=== PATIENT | male | born 1990 | race Caucasian/White ===

== ENCOUNTER 2022-11-11 22:49 | Emergency (ER) | payer BC ==
[~2022-11-11] VITALS: Ht 172.7 cm; Wt 99.8 kg
[2022-11-12] MEDS ORDERED: IV NS 0.9% 1,000 ML BAG IV ONE
[2022-11-12] MEDS ORDERED: KETOROLAC TROMETHAMINE INJ 30 MG/ML VIAL IV ONE
--- NOTE | 2022-11-12 | NUR ---
TO ER BED 12. BIBS C/O RECTUM PAIN AND RIGHT SIDED ABDOMINAL PAIN WITH DIARRHEA [id number]. PT IS ALERT AND ORIENTED. RR EVEN AND NONLABORED. CONNECTED TO MONITOR. VSS
--- NOTE | 2022-11-12 | NUR ---
SECURED IV ACCESS ON L HAND#20, PATENT AND FLUSHING WELL.
[2022-11-12] MEDS ORDERED: KETOROLAC TROMETHAMINE INJ 30 MG/ML VIAL ONE (00:04)
--- NOTE | 2022-11-12 00:13 | NUR ---
ultrasound at bedside
[2022-11-12 00:19] LABS: BASOPHILS # (AUTO) 0.1 K/uL (0.0-0.2); BASOPHILS % (AUTO) 0.9 % (0.0-2.0); EOSINOPHILS % (AUTO) 3.2 % (0.0-6.0); HEMATOCRIT 40 % (39-51); LYMPHOCYTES # (AUTO) 3.2 K/uL (0.8-4.8); LYMPHOCYTES % (AUTO) 44.7 % (20.0-44.0); MEAN CORPUSCULAR HGB CONC 33 g/dl (31.0-36.0); MEAN CORPUSCULAR VOLUME 85 fL (80-96); MONOCYTES # (AUTO) 0.5 K/uL (0.1-1.30); MONOCYTES % (AUTO) 6.9 % (2.0-12.0); NEUTROPHILS # (AUTO) 3.2 K/uL (1.8-8.9); NEUTROPHILS % (AUTO) 44.3 % (43.0-81.0); PLATELET COUNT (AUTO) 188 K/uL (150-450); RED BLOOD CELL COUNT(AUTO) 4.68 MIL/uL (4.5-6.0); WHITE BLOOD COUNT (AUTO) 7.2 K/uL (4.3-11.0)
[2022-11-12 00:25] LABS: BILIRUBIN,URINE NEGATIVE (NEGATIVE); COLOR,URINE YELLOW (YELLOW); LEUKOCYTE ESTERASE ,URINE NEGATIVE (NEGATIVE); NITRITE, URINE NEGATIVE (NEGATIVE); PROTEIN,URINE NEGATIVE (NEGATIVE); UGLUCOSE NEGATIVE (NEGATIVE)
[2022-11-12 00:32] LABS: BACTERIA,URINE None seen /HPF (None Seen); RBC,URINE 0-2 /HPF (0-2); SQUAMOUS EPITHELIAL CELL,UR Few /HPF (None Seen); WBC,URINE 0-2 /HPF (0-3)
[2022-11-12 00:36] LABS: ALBUMIN 3.7 g/dL (3.4-5.0); BILIRUBIN,TOTAL 0.2 mg/dL (0.2-1.0); CALCIUM, SERUM 9.1 mg/dL (8.5-10.1); CREATININE 1.1 mg/dL (0.6-1.3); POTASSIUM 3.6 mmol/L (3.5-5.1); TOTAL PROTEIN, SERUM 6.8 g/dL (6.4-8.2)
--- NOTE | 2022-11-12 00:53 | NUR ---
COVID SWAB COLLECTED
--- NOTE | 2022-11-12 03:38 | NUR ---
PATIENT IS RESTING COMFORTABLY IN BED, DENIES ANY DISCOMFORT AT THIS TIME. VSS
[2022-11-12 04:17] VITALS: BP 132/61
--- NOTE | 2022-11-12 04:17 | NUR ---
Patient discharged to home in stable condition. Written and verbal after care instructions given. Patient verbalizes understanding of instruction.
== END 2022-11-12 04:18 | disposition home or self-care (01) ==
LOC: ER 23:06
DX: R10.11 Right upper quadrant pain (principal); R19.7 Diarrhea, unspecified; Z20.822 Contact with and (suspected) exposure to COVID-19
CPT/HCPCS: 99285; 76705; 85025; 80048; 83690; 80076; 81001; 36415; 85730; 74177; 96374; 96361; 87426; J7050; Q9967; J1885; J7030; C9803